=== PATIENT | female | born 1995 | race Caucasian/White ===

== ENCOUNTER 2016-12-09 18:34 | Emergency (ER) | payer OTHER ==
[~2016-12-09] VITALS: Ht 170.2 cm; Wt 81.5 kg
[2016-12-09 18:38] VITALS: Ht 170.2 cm; Wt 81.5 kg
[2016-12-09] MEDS ORDERED: LIDOCAINE 2% (MDV) 20 ML INJ SC ONE (19:00)
[2016-12-09] MEDS ORDERED: [UNRECOGNIZED DRUG - REMARK] (19:18)
--- NOTE | 2016-12-09 19:20 | ERD ---
ER Documentation Chief Complaint Date/Time DATE: 12/09/16 TIME: 19:15 Chief Complaint abscess left leg HPI 21-year-old female presents to emergency department for complaints of redness and swelling the left lower leg, with tightness to possibly have an abscess, [place], was given some antibiotics, some form of penicillin, continues to have redness and now has discharge, and is been on antibiotics for the last 6 days. Patient complains of pain throbbing pain, 8/10 scale, is worse upon touching the area. Patient does any numbness or tingling. Patient denies any fever or chills. ROS All systems reviewed and are negative except as per history of present illness. Medications Home Meds Reported Medications [unk atb] Unknown Strength No Conflict Check 12/09/16 Allergies Allergies: Coded Allergies: No Known Allergy (Unverified , 12/09/16) PMhx/Soc Medical and Surgical Hx: pt denies Medical Hx, pt denies Surgical Hx Hx Alcohol Use: No Hx Substance Use: No Hx Tobacco Use: No Smoking Status: Never smoker FmHx Family History: No coronary disease, No diabetes, No other Physical Exam Vitals Vital Signs Date Time Temp Pulse Resp B/P Pulse Ox O2 Delivery O2 Flow Rate FiO2 12/09/16 18:38 99.1 68 20 120/80 100 Physical Exam GENERAL: The patient is well developed and appropriate for usual state of health, in no apparent distress. CHEST: Clear to auscultation bilaterally. There are no rales, wheezes or rhonchi. HEART: Regular rate and rhythm. No murmurs, clicks, rubs or gallops. No S3 or S4. ABDOMEN: Soft, nontender and nondistended. Good bowel sounds. No rebound or guarding. No gross peritonitis. No gross organomegaly or masses. No Monson sign or McBurney point tenderness. BACK: No midline or flank tenderness. EXTREMITIES: Equal pulses bilaterally. There is no peripheral clubbing, cyanosis or edema. No focal swelling or erythema. Full range of motion. Grossly neurovascularly intact. NEURO: Alert and oriented. Cranial nerves 2-12 intact. Motor strength in all 4 extremities with 5/5 strength. Sensation grossly intact. Normal speech and gait. SKIN: Noted 3 cm diameter indurated fluctuant erythematous tender area on the left lower leg, purulent discharge is coming out of the opening. There is no apparent ecchymosis or petechia. The skin is warm and dry. HEMATOLOGIC AND LYMPHATIC: There is no evidence of excessive bruising or lymphedema. No gross cervical, axillary, or inguinal lymphadenopathy. Results 24 hrs Current Medications Medications (Trade) Dose Ordered Sig/Allison Route PRN Reason Start Time Stop Time Status Last Admin Dose Admin Lidocaine (Xylocaine 2% (Mdv) 20 ml) 2 ml ONCE ONCE SC 12/09/16 19:00 12/09/16 19:01 DC Procedures/MDM Procedure Note: After obtaining informed consent, the wound was irrigated with 250 ml of normal saline and cleaned with diluted betadine. Using aseptic technique, 3 ml of 1% lidocaine was injected on the subcutaneous tissue of the abscess where the fluctuant area is at. After the anesthetic, a 2 cm incision was done in the middle of the fluctuant area of the abscess. Pustular discharge was drained from the abscess. The abscess wound was loosely packed with iodoform dressing. After the procedure, dry dressing was applied on the area. Patient tolerated procedure well. Medical Decision making: Patient symptoms is likely is consistent with a soft tissue abscess. This was drained without any difficulty. No symptoms of neurovascular compromise. Low suspicion for any septic joint. Low suspicion for sepsis, patient presents hemodynamically stable. Another antibiotic was started , patient was given Bactrim and Keflex, was advised to stop antibiotics taking her home. c Departure Diagnosis: Primary Impression: Soft tissue abscess Condition: Stable Patient Instructions: Abscess, Incision And Drainage Additional Instructions: Patient was advised to apply warm, is an affected area, wound check in 2 days, patient is advised to return to emergency department for any worsening symptoms. Follow-up in 2 days for reevaluation of symptoms and possible change of dressing. BERNICE HUERTA NP Dec 09, 2016 19:20
[2016-12-09] MEDS ORDERED: SULF1TAB31 PO (19:44)
[2016-12-09] MEDS ORDERED: IBUP-1542 PO (19:44)
[2016-12-09] MEDS ORDERED: CEPH-443 PO (19:44)
[2016-12-09 19:50] VITALS: PULSE 70; RESP 16; TEMP 98
== END 2016-12-09 20:16 | disposition home or self-care (01) ==
LOC: FTE 18:34
DX: L02.416 Cutaneous abscess of left lower limb (principal)
CPT/HCPCS: 10061; Z7610

== ENCOUNTER 2016-12-11 21:15 | Emergency (ER) | payer OTHER ==
[~2016-12-11] VITALS: Ht 175.3 cm; Wt 78.5 kg
[~2016-12-11 21:15] MED LIST: CEPH-443 PO; IBUP-1542 PO; SULF1TAB31 PO; [UNRECOGNIZED DRUG - REMARK]
[2016-12-11 22:04] VITALS: Ht 175.3 cm; Wt 78.5 kg
--- NOTE | 2016-12-11 23:03 | ERD ---
ER Documentation Chief Complaint Date/Time DATE: 12/11/16 TIME: 22:58 Chief Complaint abscess to left leg, here for wound check HPI This is a 21-year-old female patient that presents to the ER for wound check of abscess on her left leg. Patient got an incision and drainage done and is here for packing removal. She has not had any fevers or chills. Her pain is resolving. Patient has been taking her antibiotics as instructed. ROS 12 point review of systems was done, all negative except per HPI. Medications Home Meds Active Scripts Cephalexin* (Keflex*) 500 Mg Capsule, 500 MG PO QID for 10 Days, CAP Prov:BERNICE HUERTA LASTEX OPERATOR 12/09/16 Sulfamethoxazole/Trimethoprim* (Bactrim Ds* Tablet) 1 Each Tablet, 1 TAB PO BID , #20 TAB Prov:BERNICE HUERTA LASTEX OPERATOR 12/09/16 Ibuprofen* (Motrin*) 600 Mg Tab, 600 MG PO Q6H Y for PAIN AND OR ELEVATED TEMP, #30 TAB Prov:BERNICE HUERTA LASTEX OPERATOR 12/09/16 Reported Medications [unk atb] Unknown Strength No Conflict Check 12/09/16 Allergies Allergies: Coded Allergies: No Known Allergy (Unverified , 12/09/16) PMhx/Soc Medical and Surgical Hx: pt denies Medical Hx, pt denies Surgical Hx Hx Alcohol Use: No Hx Substance Use: No Hx Tobacco Use: No Smoking Status: Never smoker Physical Exam Vitals Vital Signs Date Time Temp Pulse Resp B/P Pulse Ox O2 Delivery O2 Flow Rate FiO2 12/11/16 22:04 98.3 85 18 118/78 98 Physical Exam GENERAL: The patient is well developed and appropriate for usual state of health , in no apparent distress. HEENT: Atraumatic. CHEST: Clear to auscultation bilaterally. There are no rales, wheezes or rhonchi. HEART: Regular rate and rhythm. No murmurs, clicks, rubs or gallops. NEURO: Alert and oriented. SKIN: There is a healing abscess to the left lower leg, there is no surrounding erythema or warmth not tender to palpation. Procedures/MDM Wound shows no evidence of infection, foreign body, neurologic injury, vascular injury, open joint or tendon laceration. Patient appropriate for outpatient follow up. Departure Diagnosis: Primary Impression: Encounter for wound re-check Condition: Stable Patient Instructions: Wound Care Referrals: RYAN CONTE MD (PCP) Additional Instructions: Call your primary care doctor TOMORROW for an appointment during the next 1-2 days.See the doctor sooner or return here if your condition worsens before your appointment time. ZAIN DALY Dec 11, 2016 23:03
== END 2016-12-11 23:01 | disposition home or self-care (01) ==
LOC: FTE 21:15
DX: Z48.01 Encounter for change or removal of surgical wound dressing (principal)
CPT/HCPCS: 99281